=== PATIENT | male | born 1980 | race Caucasian/White ===

== ENCOUNTER 2022-05-22 20:10 | Emergency (ER) | payer OTHER, SELFPAY ==
--- NOTE | ~2022-05-22 | XR_ITS ---
EXAMINATION: XR CHEST CLINICAL INFORMATION: Wheezing. COMPARISON: None TECHNIQUE: 2 views of the chest were obtained. FINDINGS: No significant abnormality is noted involving the heart, lungs, mediastinum, bony thorax or soft tissues. XR/XR chest 2V IMPRESSION: Unremarkable examination.
[2022-05-22 20:19] VITALS: BP 135/84; PULSE 122; RESP 22; TEMP 36.5; O2SAT 95; BMI 39.0
--- NOTE | 2022-05-22 20:19 | ED_ITS ---
HPI - URI/Sore Throat General Chief Complaint: Dyspnea <Danyelle Moreno NP - Last Filed: 05/22/22 20:27> Stated Complaint: SOB <Daynelle Moreno NP - Last Filed: 05/22/22 20:27> Time Seen by Provider: 05/22/22 20:28 <Danyelle Moreno NP - Last Filed: 05/22/22 20:27> Source: patient <Kassidy Mario MD - Last Filed: 05/23/22 00:42> Mode of arrival: ambulatory <Kassidy Mario MD - Last Filed: 05/23/22 00:42> Limitations: no limitations <Kassidy Mario MD - Last Filed: 05/23/22 00:42> History of Present Illness HPI Narrative: Patient comes to the emergency room complaining of shortness of breath. Patient states that couple of weeks ago he had a URI, home COVID test was negative. Patient states that he was wheezing quite a bit but did not think much of it. Patient has no history of asthma or COPD, no cigarette smoking other than occasional marijuana. Patient states that this morning he started feeling short of breath, patient was hoping that he would feel better throughout the day but his shortness of breath and wheezing got worse. Patient denies any chest pain, no fever chills, feels that his abdomen is distended. <Kassidy Mario MD - Last Filed: 05/23/22 00:42> Related Data Home Medications: Previous Rx's Medication Instructions Recorded albuterol sulfate 90 mcg/actuation 2 puff inhalation Q4-6H PRN 05/23/22 aerosol inhaler shortness of breath or wheezing #8.5 grams prednisone 50 mg tablet 50 mg PO DAILY #4 tabs 05/23/22 <Danyelle Moreno NP - Last Filed: 05/22/22 20:27> Allergies/Adverse Reactions: Allergies Allergy/AdvReac Type Severity Reaction Status Date / Time No Known Allergies Allergy Verified 05/22/22 20:22 <Danyelle Moreno NP - Last Filed: 05/22/22 20:27> Review of Systems Review of Systems: Constitutional : No Weight loss, No Fever, No Chills, No Night Sweats, No Fatigue, No Malaise ENT/Mouth : No Hearing loss, No Ear Pain, No Nasal Congestion, No Sinus Pain, No Hoarseness, No sore throat, No Rhinorrhea, No Swallowing Difficulty Eyes: No Eye Pain, No Swelling, No Redness, No Foreign Body, No Discharge, No Vision Changes Cardiovascular : No Chest Pain, no orthopnea, no edema or palpitations Respiratory : Complaining of mild cough, complaining of wheezing and shortness of breath Gastrointestinal : No Nausea, No Vomiting, No Diarrhea, No Constipation, No abdominal Pain, No Hematochezia, No Melena Genitourinary : no irregular bleeding, No Dysuria, No Urinary Frequency, No Hematuria, No Urinary Incontinence, No Urgency, No Flank Pain, No Urinary Flow Changes, No Hesitancy Musculoskeletal : No joint pain, No Myalgias, No Joint Swelling Skin : No Skin Lesions, No rash Neuro : No Weakness, No Numbness, No Paresthesias, No Loss of Consciousness, No Dizziness, No Headache Psych : No Anxiety/Panic, No Depression, No SI/HI/AH/VH, No Social Issues, Heme/Lymph: No Bruising, No Bleeding,No Lymphadenopathy Endocrine : No Polyuria, No Polydipsia, No Temperature Intolerance <Kassidy Mario MD - Last Filed: 05/23/22 00:42> [facility] Social History Social History: Social History Advance Directives: No Advance Directives Information Provided: No <Danyelle Moreno NP - Last Filed: 05/22/22 20:27> Physical Exam Vital Signs: Vital Signs: Last Vital Signs Temp 97.7 F 05/22/22 20:19 Pulse 106 H 05/22/22 20:40 Resp 24 H 05/22/22 20:40 BP 135/84 05/22/22 20:19 Pulse Ox 95 05/22/22 20:19 O2 Del Method 05/22/22 20:19 BMI result Body Mass Index 39.0 <Danyelle Moreno NP - Last Filed: 05/22/22 20:27> Vital Signs: Last Vital Signs Temp 97.7 F 05/22/22 20:19 Pulse 106 H 05/22/22 20:40 Resp 24 H 05/22/22 20:40 BP 135/84 05/22/22 20:19 Pulse Ox 95 05/22/22 20:19 O2 Del Method 05/22/22 20:19 BMI result Body Mass Index 39.0 <Kassidy Mario MD - Last Filed: 05/23/22 00:42> Const: Other: Appearance: Alert. Oriented X3. No acute distress. Eyes: Pupils equal, round and reactive to light. ENT: Pharynx normal. Neck: Normal inspection. Neck supple. No lymph nodes noted. No crepitus CVS: Tachycardic with regular rhythm. Pulses normal. Normal S1 and S2 Respiratory: No respiratory distress. Tachypneic, respiratory rate 22, oxygen saturation 95% on room air, bilateral wheezing, no crackles or rales Abdomen: Soft and nontender. No rigidity. No distention. Skin: Skin warm and dry. Normal skin color. Normal skin turgor. Extremities: No lower extremity edema. No Lacerations. No Rash Neuro: Oriented X 3. No motor deficit. No sensory deficit. Moving all extremities. No slurred speech. CN 2 through 12 grossly intact Psych: calm, cooperative, normal affect <Kassidy Mario MD - Last Filed: 05/23/22 00:42> Course Course Course Narrative: This is rapid medical exam. Deferred additional HPI, ROS, PE to primary provider. 42 yo male healthy here with upper abdominal pressure began this morning. Patient reports recent URI with symptoms that resolved but now feeling SOb/wheezing. No nausea/vomiting/diarrhea/fevers/chills. Patient with inspiratory expiratory wheezing throughout, tachypnea, tachycardia and triage. Pain with breathing and feels like he cant take a deep breath. Patient to have labs, EKG, CXR, viral testing. Duoneb, magnesium, Solu-Medrol ordered. Patient to be direct bedded <Danyelle Moreno NP - Last Filed: 05/22/22 20:27> This is rapid medical exam. Deferred additional HPI, ROS, PE to primary provider. 42 yo male healthy here with upper abdominal pressure began this morning. Patient reports recent URI with symptoms that resolved but now feeling SOb/wheezing. No nausea/vomiting/diarrhea/fevers/chills. Patient with inspiratory expiratory wheezing throughout, tachypnea, tachycardia and triage. Pain with breathing and feels like he cant take a deep breath. Patient to have labs, EKG, CXR, viral testing. Duoneb, magnesium, Solu-Medrol ordered. Patient to be direct bedded Patient no longer has abdominal pain No longer wheezing, patient breathing comfortably. Patient walked around the emergency room, oxygen saturation 94% on room air Discussed with patient to follow-up with PCP, he may need a referral to pulmonology for pulmonary studies, patient may have developed asthma. Unlikely to be COPD <Kassidy Mario MD - Last Filed: 05/23/22 00:42> Medications Administered Discontinued Medications Generic Name Dose Route Start Last Admin Trade Name Freq PRN Reason Stop Dose Admin Albuterol Sulfate 2.5 mg/ 0 mg 05/22/22 20:22 05/22/22 20:37 Ipratropium Trinity 0.5 mg INHALE 05/22/22 20:23 1 each ONCE ONE Administration Magnesium Sulfate 2 gm in 50 mls @ 25 mls/hr 05/22/22 20:26 05/23/22 00:09 Magnesium Sulfate/H2o IV 05/22/22 22:25 Infused ONCE ONE Infusion Methylprednisolone Sodium Succinate 125 mg 05/22/22 20:26 05/22/22 21:37 Methylprednisolone Sod Succ 125 Mg/2 Ml Vial IVPUSH 05/22/22 20:27 125 mg ONCE ONE Administration <Danyelle Moreno NP - Last Filed: 05/22/22 20:27> Medications Administered Discontinued Medications Generic Name Dose Route Start Last Admin Trade Name Freq PRN Reason Stop Dose Admin Albuterol Sulfate 2.5 mg/ 0 mg 05/22/22 20:22 05/22/22 20:37 Ipratropium Trinity 0.5 mg INHALE 05/22/22 20:23 1 each ONCE ONE Administration Magnesium Sulfate 2 gm in 50 mls @ 25 mls/hr 05/22/22 20:26 05/23/22 00:09 Magnesium Sulfate/H2o IV 05/22/22 22:25 Infused ONCE ONE Infusion Methylprednisolone Sodium Succinate 125 mg 05/22/22 20:26 05/22/22 21:37 Methylprednisolone Sod Succ 125 Mg/2 Ml Vial IVPUSH 05/22/22 20:27 125 mg ONCE ONE Administration <Kassidy Mario MD - Last Filed: 05/23/22 00:42> Medical Decision Making Medical Decision Making MDM Narrative: D-dimer negative, EKG within normal limits, troponin negative, chest x-ray negative Patient likely developing asthma. <Kassidy Mario MD - Last Filed: 05/23/22 00:42> Differential Diagnosis Differential Diagnoses: The differential diagnosis associated with the presentation includes (Viral syndrome, asthma, COPD) <Kassidy Mario MD - Last Filed: 05/23/22 00:42> Lab Data MDM Lab Attestation statement: I reviewed the patient's lab results. <Kassidy Mario MD - Last Filed: 05/23/22 00:42> Result Diagrams: 05/22/22 21:00 05/22/22 21:00 <Danyelle Moreno NP - Last Filed: 05/22/22 20:27> Labs: Lab Results 05/22/22 05/22/22 05/22/22 Range/Units 21:00 21:00 21:00 WBC 7.9 (4.8-10.8) X10*3/uL RBC 5.83 H (4.60-5.80) X10*6/uL Hgb 17.9 (14.0-18.0) g/dl Hct 51.1 (42.0-52.0) % MCV 87.7 (80.0-98.0) fL MCH 30.7 (27.0-33.0) pg MCHC 35.0 (31.0-36.0) g/dl RDW 11.9 (11.0-16.0) % Plt Count TNP MPV 11.2 (9.4-12.4) fL Immature Gran % (Auto) 0.3 (0.0-0.4) % Neut % (Auto) 60.3 (45-73) % Lymph % (Auto) 30.8 (20-40) % [place] % (Auto) 4.7 (2-11) % Eos % (Auto) 3.3 (0-4) % Baso % (Auto) 0.6 (0-2) % Lymph # (Auto) 2.4 (1.2-4.9) X10*3/uL [place] # (Auto) 0.4 (0.1-1.2) X10*3/uL Eos # (Auto) 0.3 (0.0-0.4) X10*3/uL Baso # (Auto) 0.1 (0.0-0.2) X10*3/uL Abs Immat Gran (auto) 0.02 (0.00-0.03) X10*3/uL Absolute Neuts (auto) 4.7 (2.0-8.3) x10*3/uL Absolute Nucleated RBC 0.000 (0.0-0.012) X10*3/uL Nucleated RBC % (auto) 0.0 (0.0-0.2) /100WBC Smear Tech's Comments VERIFIED PT 12.2 (10.0-13.1) SEC INR 1.1 (0.9-1.1) D-Dimer High Sensitivty NG/ML Sodium 139 (135-145) mmol/L Potassium 3.9 (3.3-5.1) mmol/L Chloride 102 (96-108) mmol/L Carbon Dioxide 26 (22-29) mmol/L Anion Gap 15 (12-20) BUN 14 (9-16) mg/dL Creatinine 0.77 (0.5-1.4) mg/dL Estim Creat Clear Calc 171.3 Estimated GFR > 60 Random Glucose 99 (60-115) mg/dL Lactic Acid (0.5-2.0) mmol/L Lactic Acid F/U @ 2Hr (0.5-2.0) mmol/L Calcium 9.6 (8.4-10.2) mg/dL Magnesium 1.8 (1.6-2.6) mg/dL Total Bilirubin 0.8 (0.0-1.0) mg/dL Direct Bilirubin 0.3 (0.0-0.5) mg/dL AST 28 (5-37) U/L ALT 47 H (0-40) U/L Alkaline Phosphatase 79 (39-117) U/L Troponin I High Sens (<3.5-35.0) ng/L Total Protein 7.7 (6.5-8.0) g/dL Albumin 4.6 (3.5-5.0) g/dL Lipase 25 (8-78) U/L Influenza Type A (PCR) (Negative) Influenza Type B (PCR) (Negative) RSV RNA Qual (PCR) (Negative) SARS-CoV-2 RNA (RT-PCR) (Negative) 01/13/23 01/13/23 01/13/23 Range/Units 21:00 21:00 21:00 WBC (4.8-10.8) X10*3/uL RBC (4.60-5.80) X10*6/uL Hgb (14.0-18.0) g/dl Hct (42.0-52.0) % MCV (80.0-98.0) fL MCH (27.0-33.0) pg MCHC (31.0-36.0) g/dl RDW (11.0-16.0) % Plt Count MPV (9.4-12.4) fL Immature Gran % (Auto) (0.0-0.4) % Neut % (Auto) (45-73) % Lymph % (Auto) (20-40) % [place] % (Auto) (2-11) % Eos % (Auto) (0-4) % Baso % (Auto) (0-2) % Lymph # (Auto) (1.2-4.9) X10*3/uL [place] # (Auto) (0.1-1.2) X10*3/uL Eos # (Auto) (0.0-0.4) X10*3/uL Baso # (Auto) (0.0-0.2) X10*3/uL Abs Immat Gran (auto) (0.00-0.03) X10*3/uL Absolute Neuts (auto) (2.0-8.3) x10*3/uL Absolute Nucleated RBC (0.0-0.012) X10*3/uL Nucleated RBC % (auto) (0.0-0.2) /100WBC Smear Tech's Comments PT (10.0-13.1) SEC INR (0.9-1.1) D-Dimer High Sensitivty NG/ML Sodium (135-145) mmol/L Potassium (3.3-5.1) mmol/L Chloride (96-108) mmol/L Carbon Dioxide (22-29) mmol/L Anion Gap (12-20) BUN (9-16) mg/dL Creatinine (0.5-1.4) mg/dL Estim Creat Clear Calc Estimated GFR Random Glucose (60-115) mg/dL Lactic Acid 2.2 H* (0.5-2.0) mmol/L Lactic Acid F/U @ 2Hr (0.5-2.0) mmol/L Calcium (8.4-10.2) mg/dL Magnesium (1.6-2.6) mg/dL Total Bilirubin (0.0-1.0) mg/dL Direct Bilirubin (0.0-0.5) mg/dL AST (5-37) U/L ALT (0-40) U/L Alkaline Phosphatase (39-117) U/L Troponin I High Sens < 3.5 (<3.5-35.0) ng/L Total Protein (6.5-8.0) g/dL Albumin (3.5-5.0) g/dL Lipase (8-78) U/L Influenza Type A (PCR) NEGATIVE (Negative) Influenza Type B (PCR) NEGATIVE (Negative) RSV RNA Qual (PCR) NEGATIVE (Negative) SARS-CoV-2 RNA (RT-PCR) NEGATIVE (Negative) 05/22/22 05/22/22 Range/Units 21:00 23:44 WBC (4.8-10.8) X10*3/uL RBC (4.60-5.80) X10*6/uL Hgb (14.0-18.0) g/dl Hct (42.0-52.0) % MCV (80.0-98.0) fL MCH (27.0-33.0) pg MCHC (31.0-36.0) g/dl RDW (11.0-16.0) % Plt Count MPV (9.4-12.4) fL Immature Gran % (Auto) (0.0-0.4) % Neut % (Auto) (45-73) % Lymph % (Auto) (20-40) % [place] % (Auto) (2-11) % Eos % (Auto) (0-4) % Baso % (Auto) (0-2) % Lymph # (Auto) (1.2-4.9) X10*3/uL [place] # (Auto) (0.1-1.2) X10*3/uL Eos # (Auto) (0.0-0.4) X10*3/uL Baso # (Auto) (0.0-0.2) X10*3/uL Abs Immat Gran (auto) (0.00-0.03) X10*3/uL Absolute Neuts (auto) (2.0-8.3) x10*3/uL Absolute Nucleated RBC (0.0-0.012) X10*3/uL Nucleated RBC % (auto) (0.0-0.2) /100WBC Smear Tech's Comments PT (10.0-13.1) SEC INR (0.9-1.1) D-Dimer High Sensitivty < 150 NG/ML Sodium (135-145) mmol/L Potassium (3.3-5.1) mmol/L Chloride (96-108) mmol/L Carbon Dioxide (22-29) mmol/L Anion Gap (12-20) BUN (9-16) mg/dL Creatinine (0.5-1.4) mg/dL Estim Creat Clear Calc Estimated GFR Random Glucose (60-115) mg/dL Lactic Acid (0.5-2.0) mmol/L Lactic Acid F/U @ 2Hr 1.1 (0.5-2.0) mmol/L Calcium (8.4-10.2) mg/dL Magnesium (1.6-2.6) mg/dL Total Bilirubin (0.0-1.0) mg/dL Direct Bilirubin (0.0-0.5) mg/dL AST (5-37) U/L ALT (0-40) U/L Alkaline Phosphatase (39-117) U/L Troponin I High Sens (<3.5-35.0) ng/L Total Protein (6.5-8.0) g/dL Albumin (3.5-5.0) g/dL Lipase (8-78) U/L Influenza Type A (PCR) (Negative) Influenza Type B (PCR) (Negative) RSV RNA Qual (PCR) (Negative) SARS-CoV-2 RNA (RT-PCR) (Negative) <Danyelle Moreno NP - Last Filed: 05/22/22 20:27> Lab Results 05/22/22 05/22/22 05/22/22 Range/Units 21:00 21:00 21:00 WBC 7.9 (4.8-10.8) X10*3/uL RBC 5.83 H (4.60-5.80) X10*6/uL Hgb 17.9 (14.0-18.0) g/dl Hct 51.1 (42.0-52.0) % MCV 87.7 (80.0-98.0) fL MCH 30.7 (27.0-33.0) pg MCHC 35.0 (31.0-36.0) g/dl RDW 11.9 (11.0-16.0) % Plt Count TNP MPV 11.2 (9.4-12.4) fL Immature Gran % (Auto) 0.3 (0.0-0.4) % Neut % (Auto) 60.3 (45-73) % Lymph % (Auto) 30.8 (20-40) % [place] % (Auto) 4.7 (2-11) % Eos % (Auto) 3.3 (0-4) % Baso % (Auto) 0.6 (0-2) % Lymph # (Auto) 2.4 (1.2-4.9) X10*3/uL [place] # (Auto) 0.4 (0.1-1.2) X10*3/uL Eos # (Auto) 0.3 (0.0-0.4) X10*3/uL Baso # (Auto) 0.1 (0.0-0.2) X10*3/uL Abs Immat Gran (auto) 0.02 (0.00-0.03) X10*3/uL Absolute Neuts (auto) 4.7 (2.0-8.3) x10*3/uL Absolute Nucleated RBC 0.000 (0.0-0.012) X10*3/uL Nucleated RBC % (auto) 0.0 (0.0-0.2) /100WBC Smear Tech's Comments VERIFIED PT 12.2 (10.0-13.1) SEC INR 1.1 (0.9-1.1) D-Dimer High Sensitivty NG/ML Sodium 139 (135-145) mmol/L Potassium 3.9 (3.3-5.1) mmol/L Chloride 102 (96-108) mmol/L Carbon Dioxide 26 (22-29) mmol/L Anion Gap 15 (12-20) BUN 14 (9-16) mg/dL Creatinine 0.77 (0.5-1.4) mg/dL Estim Creat Clear Calc 171.3 Estimated GFR > 60 Random Glucose 99 (60-115) mg/dL Lactic Acid (0.5-2.0) mmol/L Lactic Acid F/U @ 2Hr (0.5-2.0) mmol/L Calcium 9.6 (8.4-10.2) mg/dL Magnesium 1.8 (1.6-2.6) mg/dL Total Bilirubin 0.8 (0.0-1.0) mg/dL Direct Bilirubin 0.3 (0.0-0.5) mg/dL AST 28 (5-37) U/L ALT 47 H (0-40) U/L Alkaline Phosphatase 79 (39-117) U/L Troponin I High Sens (<3.5-35.0) ng/L Total Protein 7.7 (6.5-8.0) g/dL Albumin 4.6 (3.5-5.0) g/dL Lipase 25 (8-78) U/L Influenza Type A (PCR) (Negative) Influenza Type B (PCR) (Negative) RSV RNA Qual (PCR) (Negative) SARS-CoV-2 RNA (RT-PCR) (Negative) 05/22/22 05/22/22 05/22/22 Range/Units 21:00 21:00 21:00 WBC (4.8-10.8) X10*3/uL RBC (4.60-5.80) X10*6/uL Hgb (14.0-18.0) g/dl Hct (42.0-52.0) % MCV (80.0-98.0) fL MCH (27.0-33.0) pg MCHC (31.0-36.0) g/dl RDW (11.0-16.0) % Plt Count MPV (9.4-12.4) fL Immature Gran % (Auto) (0.0-0.4) % Neut % (Auto) (45-73) % Lymph % (Auto) (20-40) % [place] % (Auto) (2-11) % Eos % (Auto) (0-4) % Baso % (Auto) (0-2) % Lymph # (Auto) (1.2-4.9) X10*3/uL [place] # (Auto) (0.1-1.2) X10*3/uL Eos # (Auto) (0.0-0.4) X10*3/uL Baso # (Auto) (0.0-0.2) X10*3/uL Abs Immat Gran (auto) (0.00-0.03) X10*3/uL Absolute Neuts (auto) (2.0-8.3) x10*3/uL Absolute Nucleated RBC (0.0-0.012) X10*3/uL Nucleated RBC % (auto) (0.0-0.2) /100WBC Smear Tech's Comments PT (10.0-13.1) SEC INR (0.9-1.1) D-Dimer High Sensitivty NG/ML Sodium (135-145) mmol/L Potassium (3.3-5.1) mmol/L Chloride (96-108) mmol/L Carbon Dioxide (22-29) mmol/L Anion Gap (12-20) BUN (9-16) mg/dL Creatinine (0.5-1.4) mg/dL Estim Creat Clear Calc Estimated GFR Random Glucose (60-115) mg/dL Lactic Acid 2.2 H* (0.5-2.0) mmol/L Lactic Acid F/U @ 2Hr (0.5-2.0) mmol/L Calcium (8.4-10.2) mg/dL Magnesium (1.6-2.6) mg/dL Total Bilirubin (0.0-1.0) mg/dL Direct Bilirubin (0.0-0.5) mg/dL AST (5-37) U/L ALT (0-40) U/L Alkaline Phosphatase (39-117) U/L Troponin I High Sens < 3.5 (<3.5-35.0) ng/L Total Protein (6.5-8.0) g/dL Albumin (3.5-5.0) g/dL Lipase (8-78) U/L Influenza Type A (PCR) NEGATIVE (Negative) Influenza Type B (PCR) NEGATIVE (Negative) RSV RNA Qual (PCR) NEGATIVE (Negative) SARS-CoV-2 RNA (RT-PCR) NEGATIVE (Negative) 05/22/22 05/22/22 Range/Units 21:00 23:44 WBC (4.8-10.8) X10*3/uL RBC (4.60-5.80) X10*6/uL Hgb (14.0-18.0) g/dl Hct (42.0-52.0) % MCV (80.0-98.0) fL MCH (27.0-33.0) pg MCHC (31.0-36.0) g/dl RDW (11.0-16.0) % Plt Count MPV (9.4-12.4) fL Immature Gran % (Auto) (0.0-0.4) % Neut % (Auto) (45-73) % Lymph % (Auto) (20-40) % [place] % (Auto) (2-11) % Eos % (Auto) (0-4) % Baso % (Auto) (0-2) % Lymph # (Auto) (1.2-4.9) X10*3/uL [place] # (Auto) (0.1-1.2) X10*3/uL Eos # (Auto) (0.0-0.4) X10*3/uL Baso # (Auto) (0.0-0.2) X10*3/uL Abs Immat Gran (auto) (0.00-0.03) X10*3/uL Absolute Neuts (auto) (2.0-8.3) x10*3/uL Absolute Nucleated RBC (0.0-0.012) X10*3/uL Nucleated RBC % (auto) (0.0-0.2) /100WBC Smear Tech's Comments PT (10.0-13.1) SEC INR (0.9-1.1) D-Dimer High Sensitivty < 150 NG/ML Sodium (135-145) mmol/L Potassium (3.3-5.1) mmol/L Chloride (96-108) mmol/L Carbon Dioxide (22-29) mmol/L Anion Gap (12-20) BUN (9-16) mg/dL Creatinine (0.5-1.4) mg/dL Estim Creat Clear Calc Estimated GFR Random Glucose (60-115) mg/dL Lactic Acid (0.5-2.0) mmol/L Lactic Acid F/U @ 2Hr 1.1 (0.5-2.0) mmol/L Calcium (8.4-10.2) mg/dL Magnesium (1.6-2.6) mg/dL Total Bilirubin (0.0-1.0) mg/dL Direct Bilirubin (0.0-0.5) mg/dL AST (5-37) U/L ALT (0-40) U/L Alkaline Phosphatase (39-117) U/L Troponin I High Sens (<3.5-35.0) ng/L Total Protein (6.5-8.0) g/dL Albumin (3.5-5.0) g/dL Lipase (8-78) U/L Influenza Type A (PCR) (Negative) Influenza Type B (PCR) (Negative) RSV RNA Qual (PCR) (Negative) SARS-CoV-2 RNA (RT-PCR) (Negative) <Kassidy Mario MD - Last Filed: 05/23/22 00:42> Independent Interpretation I performed an independent interpretation of an: EKG (My interpretation: Normal sinus rhythm, heart rate 98, no ST segment depression or elevation, no T-wave inversion, QTC 446, low voltage EKG) and Pl ain X-Ray (My interpretation of chest x-ray: No infiltrate) <Kassidy Mario MD - Last Filed: 05/23/22 00:42> Radiology Impression Discussion of test interpretation with radiology: I have reviewed the radiologist's reading. <Kassidy Mario MD - Last Filed: 05/23/22 00:42> Radiologist Impression: FINDINGS: No significant abnormality is noted involving the heart, lungs, mediastinum, bony thorax or soft tissues. XR/XR chest 2V IMPRESSION: Unremarkable examination. <Kassidy Mario MD - Last Filed: 05/23/22 00:42> Discharge Plan Discharge Clinical Impression: Bilateral wheezing <Danyelle Moreno NP - Last Filed: 05/22/22 20:27> Patient Disposition: Home, Self-Care <Danyelle Moreno NP - Last Filed: 05/22/22 20:27> Instructions: Wheezing (ED) <Danyelle Moreno NP - Last Filed: 05/22/22 20:27> Additional Instructions: Please follow-up with your primary care physician tomorrow. If you have any worsening or new symptoms, please return to the emergency room or call 911 <Danyelle Moreno NP - Last Filed: 05/22/22 20:27> Prescriptions: New prednisone 50 mg tablet 50 mg PO DAILY Qty: 4 0RF albuterol sulfate 90 mcg/actuation HFA aerosol inhaler 2 puff inhalation Q4-6H PRN (Reason: shortness of breath or wheezing) Qty: 8.5 0RF <Danyelle Moreno NP - Last Filed: 05/22/22 20:27>
--- NOTE | 2022-05-22 20:22 | ECG_ITS ---
Test Reason : DYSPNEA Blood Pressure : / mmHG Vent. Rate : 098 BPM Atrial Rate : 098 BPM P-R Int : 170 ms QRS Dur : 078 ms QT Int : 350 ms P-R-T Axes : 064 -17 042 degrees QTc Int : 446 ms Normal sinus rhythm Cannot rule out Anterior infarct , age undetermined Abnormal ECG No previous ECGs available Referred By: Danyelle Moreno Electronically Signed By:Boni Thompson
[2022-05-22 20:40] VITALS: PULSE 106; RESP 24; O2SAT 100
[2022-05-22 21:13] LABS: Basophils Absolute Auto 0.1 X10*3/uL (0.0-0.2); Basophils Percent Auto 0.6 % (0-2); Hemoglobin 17.9 g/dl (14.0-18.0); Mean Platelet Volume 11.2 fL (9.4-12.4); Neutrophils Percent Auto 60.3 % (45-73); PLT CLUMP 1; SCAN SMEAR FLAG 1
[2022-05-22 21:15] LABS: Eosinophils Absolute Auto 0.3 X10*3/uL (0.0-0.4); Eosinophils Percent Auto 3.3 % (0-4); Hematocrit 51.1 % (42.0-52.0); Imm Gran Abs Auto 0.02 X10*3/uL (0.00-0.03); Imm Gran Pct Auto 0.3 % (0.0-0.4); Lymphocytes Absolute Auto 2.4 X10*3/uL (1.2-4.9); Lymphocytes Percent Auto 30.8 % (20-40); MANUAL DIFF FLAG SCAN; Mean Corpuscular Hemoglobin 30.7 pg (27.0-33.0); Mean Corpuscular Volume 87.7 fL (80.0-98.0); Monocytes Absolute Auto 0.4 X10*3/uL (0.1-1.2); Monocytes Percent Auto 4.7 % (2-11); Neutrophils Absolute Auto 4.7 x10*3/uL (2.0-8.3); Red Blood Count 5.83 X10*6/uL (4.60-5.80); Red Cell Distribution Width 11.9 % (11.0-16.0)
[2022-05-22 21:19] LABS: White Blood Count 7.9 X10*3/uL (4.8-10.8)
[2022-05-22 21:22] LABS: INTERNATIONAL NORM RATIO 1.1 (0.9-1.1); Prothrombin Time 12.2 SEC (10.0-13.1)
[2022-05-22 21:28] LABS: Alanine Aminotransferase 47 U/L (0-40); Albumin Level 4.6 g/dL (3.5-5.0); Alkaline Phosphatase 79 U/L (39-117); Anion Gap 15 (12-20); Aspartate Amino Transferase 28 U/L (5-37); Bilirubin Direct 0.3 mg/dL (0.0-0.5); Bilirubin Total 0.8 mg/dL (0.0-1.0); Blood Urea Nitrogen 14 mg/dL (9-16); Calcium 9.6 mg/dL (8.4-10.2); Carbon Dioxide 26 mmol/L (22-29); Chloride 102 mmol/L (96-108); Creatinine Clr Calc Pharmacy 171.3; Estimated Glomerular Filt Rate > 60; Glucose Random 99 mg/dL (60-115); Lipase 25 U/L (8-78); Magnesium 1.8 mg/dL (1.6-2.6); Potassium 3.9 mmol/L (3.3-5.1); Sodium 139 mmol/L (135-145); Total Protein 7.7 g/dL (6.5-8.0)
[2022-05-22 21:29] LABS: Lactic Acid 2.2 mmol/L (0.5-2.0)
[2022-05-22] MEDS: Magnesium Sulfate/H2O 2 GM/50 ML PIGGYBACK IV (21:36)
[2022-05-22] MEDS: methylPREDNISolone Sod Succ 125 MG/2 ML VIAL IVPUSH (21:37)
[2022-05-22 21:38] LABS: SLIDE REVIEW VERIFIED
[2022-05-22 21:58] LABS: Influenza A PCR NEGATIVE (Negative); Influenza B PCR NEGATIVE (Negative); Resp Syncy Virus RNA Qual PCR NEGATIVE (Negative); SARS COV2 PCR INHOUSE NEGATIVE (Negative)
[2022-05-22 22:04] LABS: Troponin-I High Sensitivity < 3.5 ng/L (<3.5-35.0)
[2022-05-22 22:38] LABS: D Dimer High Sensitivity < 150 NG/ML
[2022-05-22 23:07] LABS: Reflex Lactate? Lactic Acid Added
[2022-05-23 00:06] LABS: ~Lactic Acid-LAB USE ONLY 1.1 mmol/L (0.5-2.0)
[2022-05-23 00:46] VITALS: BP 122/89; PULSE 107; RESP 17; TEMP 36.6; O2SAT 96
== END 2022-05-23 01:02 | disposition home or self-care (01) ==
PROVIDERS: Nurse Practitioner Family; Emergency Provider Emergency Medicine
DX: R06.2 Wheezing (principal); R06.02 Shortness of breath; R10.10 Upper abdominal pain, unspecified; Z20.822 Contact with and (suspected) exposure to COVID-19; Z20.828 Contact with and (suspected) exposure to other viral communicable diseases; Z79.899 Other long term (current) drug therapy
CPT/HCPCS: 0241U; 36415; 71046; 80048; 80076; 83605; 83690; 83735; 84484; 85025; 85379; 85610; 87040; 93005; 94640; 96365; 96366; 96375; 99284; 99285; J2930; J3475

== ENCOUNTER 2023-06-23 20:57 | Emergency (ER) | payer OTHER, SELFPAY ==
--- NOTE | ~2023-06-23 | XR_ITS ---
EXAMINATION: XR CHEST CLINICAL INFORMATION: Chest pain COMPARISON: None available. TECHNIQUE: 2 views of the chest were obtained. FINDINGS: The lungs are fairly well-expanded and clear. Heart size and pulmonary vascularity is normal. No gross bony abnormality seen. XR/XR chest 2V IMPRESSION: Unremarkable chest exam.
[2023-06-23 21:00] VITALS: BP 154/99; PULSE 121; RESP 18; TEMP 37.1; O2SAT 94; BMI 40.2
[2023-06-23 21:35] LABS: COVID-19 Test Negative (Negative); IDNOW Serial# 08D9AD1C
[2023-06-23 21:39] LABS: IDNOW Serial# 9DB6401D; Influenza A Negative (Negative); Influenza B2 Negative (Negative)
[2023-06-24 00:22] VITALS: BP 155/87; PULSE 110; RESP 22; TEMP 37.4; O2SAT 93
--- NOTE | 2023-06-24 00:31 | PC.NURSE ---
Addendum entered by Reena Mcadams 06/24/23 00:33: Respiratory called and made aware. Original Note: Pt reports increase SOB with exertion, auditory wheezing while walking up to triage. SpO2 93% on RA. Lung sounds wheezy.
[2023-06-24 00:34] VITALS: BP 159/94; PULSE 116; RESP 22; TEMP 37.8; O2SAT 96
[2023-06-24 00:45] VITALS: PULSE 111; RESP 21; O2SAT 97
[2023-06-24] MEDS: Albuterol Sulfate 5 MG, Albuterol Sulfate (0.083%) 2.5 MG 7.5 MG INHALE (00:45)
--- NOTE | 2023-06-24 00:51 | ED.ASTHMA ---
HPI - Asthma General Chief Complaint: Asthma Stated Complaint: asthma, difficulty breathing Time Seen by Provider: 06/24/23 00:34 Source: patient and RN notes reviewed Mode of arrival: ambulatory Limitations: no limitations History of Present Illness HPI Narrative: This is a 43-year-old male, with a history of asthma, presenting to the emergency department with complaints of asthma exacerbation x3 days. Patient states that over the last week he has felt like he had cold-like symptoms including cough, runny nose, sneezing. He has been using his inhaler at home without any improvement. He denies any fevers, chills, headache, dizziness, chest pain, palpitations, abdominal pain, nausea, vomiting or diarrhea. No recent travel, surgeries, hospitalizations. No history of blood clots. No other complaints or concerns at this time. MD complaint: asthma attack Context: recent URI Associated symptoms: dry cough Asthma History: childhood onset and history of prior ED visit Related Data Previous Rx's Medication Instructions Recorded albuterol sulfate 90 mcg/actuation 2 puff inhalation Q4-6H PRN 05/23/22 aerosol inhaler shortness of breath or wheezing #8.5 grams prednisone 50 mg tablet 50 mg PO DAILY #4 tabs 05/23/22 albuterol sulfate 90 mcg/actuation 2 puff inhalation Q6H PRN 06/24/23 aerosol inhaler shortness of breath or wheezing #6.7 grams azithromycin 250 mg tablet 250 mg PO DAILY 4 days #4 tabs 06/24/23 prednisone 20 mg tablet 40 mg (2 x 20 mg) PO DAILY 4 days 06/24/23 #8 tabs Allergies Allergy/AdvReac Type Severity Reaction Status Date / Time No Known Allergies Allergy Verified 06/23/23 21:00 Review of Systems Review of Systems: Yes all other systems are reviewed and are negative Constitutional: Constitutional: Reports as per [facility] Social History Social History Alcohol intake: current Alcohol intake frequency: holidays/special occasions only Smoked in Last 30 Days: No Use of substances other than those prescribed or required for medical reasons: No Substance Use Type: Marijuana Advance Directives: No Advance Directives Information Provided: No Physical Exam Vital Signs: Vital Signs: Last Vital Signs Temp 99.5 F 06/24/23 03:41 Pulse 106 H 06/24/23 03:41 Resp 20 02/15/24 03:41 BP 114/71 06/24/23 03:41 Pulse Ox 95 06/24/23 03:59 O2 Del Method Room Air 06/24/23 03:59 BMI result Body Mass Index 40.2 Const: General: cooperative, comfortable and no acute distress Orientation/consciousness: patient oriented x3 Limitations: no limitations HEENT: Head: Yes normal to inspection, Yes normocephalic and Yes atraumatic Ears: hearing grossly normal bilaterally General nose exam: Normal external nose present Face and sinus: Yes normal facial exam Mouth: Normal oral and palatal mucosa present, oropharynx normal and moist mucous membranes Throat: Yes posterior oropharynx normal Eyes: General: appearance normal, both eyes and all related structures Eyelids: Yes eyelids normal Conjunctivae: conjunctivae normal Sclerae: sclerae normal Pupils: Equal, round and reactive pupils present EOM: EOMs intact bilaterally Neck: Neck: Yes normal visual inspection, Yes full ROM and Yes no lymphadenopathy Lymphatic: no lymphadenopathy noted Chest: Chest palpation & inspection: normal inspection of the chest Resp: Other: Tight, inspiratory and expiratory wheezes throughout all lung moore, speaking in 2-3 word sentences secondary to labored breathing Cardio: Rate: regular rate Rhythm: regular rhythm Heart sounds: S1 normal heart sound present and S2 normal heart sound present GI: Inspection: Yes normal to inspection Skin: General skin exam: no rashes or lesions noted Trauma: no lacerations or abrasions Wounds: no wounds Neuro: General: patient oriented x3 and moves all extremities Cranial nerves: Yes Equal, round and reactive pupils present Extrem: General: Yes normal to inspection Right upper extremity: normal to inspection Left upper extremity: normal to inspection Right lower extremity: normal to inspection Left lower extremity: normal to inspection Course Reevaluation(s) Reevaluation #1: Patient re-evaluated after receiving updraft, and it has been approximately 45 minutes since receiving IV steroids and magnesium. Patient has yet to receive IV fluids. Asked nurse to place patient on IV fluid bag. Time: 02:03 Reevaluation #2: Patient IV fluids, tachycardic at 119 beats per minute, better air movement throughout all lung moore however inspiratory and expiratory wheezes noted. Discussed this with patient, may have to administer 2nd updraft. I discussed this with my attending, Dr. Booth. Sign-out given to him pending re-evaluation after receiving IV fluids. Time: 02:19 Reevaluation #3: I re-examined the patient. He still has some mild wheezes. His oxygenation on room air is over 90%. He feels considerably better. I think he is safe for discharge. He will be prescribed prednisone and azithromycin at discharge. He has an albuterol inhaler. We will instruct him in the use of an AeroChamber. He does not have a primary care doctor. He is strongly encouraged to get a primary care doctor and also possibly follow up with the [place] [facility]. If he is worse at any point he needs to return to the emergency room immediately Time: 04:06 Medications Administered Discontinued Medications Generic Name Dose Route Start Last Admin Trade Name Freq PRN Reason Stop Dose Admin Albuterol Sulfate 5 mg/ 7.5 mg 06/24/23 00:35 06/24/23 00:45 Albuterol Sulfate 2.5 mg INHALE 06/24/23 00:36 7.5 mg ONCE ONE Administration Magnesium Sulfate 2 gm in 50 mls @ 25 mls/hr 06/24/23 00:47 06/24/23 01:30 Magnesium Sulfate/H2o IV 06/24/23 02:46 25 mls/hr ONCE ONE Administration Sodium Chloride 1,000 mls @ 999 mls/hr 06/24/23 00:48 06/24/23 02:05 Ns IV 06/24/23 01:48 999 mls/hr .Q1H1M ONE Administration Methylprednisolone Sodium Succinate 125 mg 06/24/23 00:48 06/24/23 01:27 Methylprednisolone Sod Succ 125 Mg/2 Ml Vial IVPUSH 06/24/23 00:49 125 mg ONCE ONE Administration Medical Decision Making Medical Decision Making [facility] Narrative: This is a 43-year-old male, with a history of asthma, presenting to the emergency department for evaluation of shortness breath, wheezing over the last several days. On arrival, 94% on room air, pulse 121, blood pressure 154/99 likely due to albuterol use. Repeat revealing pulse of 1011, respirations 21, he is afebrile. Chest x-ray was obtained, no focal consolidation seen. Patient tested negative for COVID and flu. Lungs with tight inspiratory and expiratory wheeze throughout all lung moore. Will give albuterol updraft, as well as IV Solu-Medrol, IV Mag and re-evaluate. He has never been intubated, no hospitalizations for asthma exacerbations in the past. He is a nonsmoker Differential Diagnosis Differential Diagnoses: The differential diagnosis associated with the presentation includes Asthma exacerbation, URI, pneumonia, bronchitis Admission/Observation Consideration of admission/observation: Escalation of care including admission/observation considered Lab Data MDM Lab Attestation statement: I reviewed the patient's lab results. Negative COVID, flu Labs: Lab Results 06/23/23 Range/Units 21:12 COVID-19 ([facility]IK) Negative (Negative) COVID-19 Clin Com See Note Influenza Type A ([facility]) Negative (Negative) Influenza Type B ([facility]) Negative (Negative) Influenza A & B Note See Note Radiology Impression Discussion of test interpretation with radiology: I have reviewed the radiologist's reading. Radiologist Impression: EXAMINATION: XR CHEST CLINICAL INFORMATION: Chest pain COMPARISON: None available. TECHNIQUE: 2 views of the chest were obtained. FINDINGS: The lungs are fairly well-expanded and clear. Heart size and pulmonary vascularity is normal. No gross bony abnormality seen. XR/XR chest 2V IMPRESSION: Unremarkable chest exam. Dictated By: Paul Talavera MD Discharge Plan Discharge Clinical Impression: Asthma with acute exacerbation Patient Disposition: Still a Patient Instructions: Asthma (ED), How to Use a Metered-Dose Inhaler and a Spacer (ED) Additional Instructions: You were seen in the emergency department due to an asthma exacerbation You were given IV steroids, IV magnesium, as well as an updraft. You tested negative for COVID and flu. Your chest x-ray did not show a pneumonia. Take prescribed prednisone as directed. Use inhaler with spacer as needed for shortness of breath. Take azithromycin once a day. Drink plenty of fluids and get plenty of rest. Please work on getting a primary care doctor. You have been given the contact number for the [facility] pulmonary service. You may try contacting them for follow-up but they may require you get a primary care doctor. If any new or worsening symptoms occur including but not limited to chest pain, shortness of breath, please return for re-evaluation Prescriptions: New prednisone 20 mg tablet 40 mg PO DAILY 4 Days Qty: 8 0RF albuterol sulfate 90 mcg/actuation HFA aerosol inhaler 2 puff inhalation Q6H PRN (Reason: shortness of breath or wheezing) Qty: 6.7 0RF azithromycin 250 mg tablet 250 mg PO DAILY 4 Days Qty: 4 0RF Rx Instructions: start on day 2 of therapy No Action prednisone 50 mg tablet 50 mg PO DAILY Qty: 4 0RF albuterol sulfate 90 mcg/actuation HFA aerosol inhaler 2 puff inhalation Q4-6H PRN (Reason: shortness of breath or wheezing) Qty: 8.5 0RF Referrals: [facility] [Provider Group]
[2023-06-24 01:25] VITALS: BP 150/93; PULSE 116; RESP 20; TEMP 37.6; O2SAT 96
[2023-06-24] MEDS: methylPREDNISolone Sod Succ 125 MG/2 ML VIAL IVPUSH (01:27)
[2023-06-24] MEDS: Magnesium Sulfate/H2O 2 GM/50 ML PIGGYBACK IV (01:30)
[2023-06-24] MEDS: 0.9 % Sodium Chloride 1,000 ML 999 ML IV (02:05)
[2023-06-24 03:41] VITALS: BP 114/71; PULSE 106; RESP 20; TEMP 37.5; O2SAT 93
--- NOTE | 2023-06-24 03:43 | MHC.EDTECH ---
Hourly rounds and vitals completed,patient is resting comfortably at this time,call chavez in reach
[2023-06-24 03:59] VITALS: O2SAT 95
--- NOTE | 2023-06-24 03:59 | MHC.EDTECH ---
Ambulated patient and got a walking O2 sats of 95%,Doctor at bedside and is aware
[2023-06-24] MEDS: Azithromycin 500 MG TABLET PO (04:20)
== END 2023-06-24 04:24 | disposition home or self-care (01) ==
PROVIDERS: Emergency Provider Emergency Medicine
DX: J45.901 Unspecified asthma with (acute) exacerbation (principal); R00.0 Tachycardia, unspecified; Z11.52 Encounter for screening for COVID-19
CPT/HCPCS: 71046; 87502; 87635; 94640; 96361; 96365; 96366; 96375; 99285; J2930; J3475

== ENCOUNTER 2024-04-23 22:35 | Emergency (ER) | payer OTHER, SELFPAY ==
--- NOTE | ~2024-04-23 | XR_ITS ---
EXAMINATION: XR CHEST CLINICAL INFORMATION: dyspnea COMPARISON: Prior chest 06/23/2023 TECHNIQUE: Frontal view of the chest was obtained. FINDINGS: No significant abnormality is noted involving the heart, lungs, mediastinum, bony thorax or soft tissues. XR/XR chest 1V IMPRESSION: Unremarkable examination. Electronically signed by: Sourav Sloan MD 04/23/2024 11:07 PM [facility]
[2024-04-23 22:37] VITALS: BP 132/93; PULSE 112; RESP 22; TEMP 37; O2SAT 95; BMI 35.9
[2024-04-23 23:30] LABS: Influenza A PCR NEGATIVE (Negative); Influenza B PCR NEGATIVE (Negative); Resp Syncy Virus RNA Qual PCR NEGATIVE (Negative); SARS COV2 PCR INHOUSE NEGATIVE (Negative)
--- NOTE | 2024-04-24 | PC.NURSE ---
Pt change into hospital attire, pt placed on tele bedside monitor, respiratory notified.
--- NOTE | 2024-04-24 00:01 | MHC.EDTECH ---
Patient was placed in the room. Heart monitor and 02 sat placed on patient. Spoke to RN about how patient was feeling.
--- NOTE | 2024-04-24 00:04 | ED_ITS ---
HPI - SOB/Dyspnea General Chief Complaint: Upper Respiratory Symptoms Stated Complaint: asthma, sob Time Seen by Provider: 04/23/24 23:55 Source: patient Mode of arrival: ambulatory Limitations: no limitations History of Present Illness ED Provider: Dr. Kassidy Mario HPI Narrative: Patient comes to the emergency room complaining of an asthma exacerbation. Patient states that he has been wheezing constantly for about 2 days now, only uses an inhaler but this time has not been working. Patient denies any recent viral illnesses. Patient denies chest pain, denies nausea vomiting. Related Data Previous Rx's ?Medication ?Instructions ?Recorded albuterol sulfate 90 mcg/actuation 2 puff inhalation Q4-6H PRN 05/23/22 aerosol inhaler shortness of breath or wheezing #8.5 grams prednisone 50 mg tablet 50 mg PO DAILY #4 tabs 05/23/22 albuterol sulfate 90 mcg/actuation 2 puff inhalation Q6H PRN 06/24/23 aerosol inhaler shortness of breath or wheezing #6.7 grams azithromycin 250 mg tablet 250 mg PO DAILY 4 days #4 tabs 06/24/23 prednisone 20 mg tablet 40 mg (2 x 20 mg) PO DAILY 4 days 06/24/23 #8 tabs prednisone 50 mg tablet 50 mg PO DAILY #4 tabs 04/24/24 Allergies Allergy/AdvReac Type Severity Reaction Status Date / Time No Known Allergies Allergy Verified 04/23/24 22:37 Review of Systems 2 Review of Systems: Appearance: Alert. Oriented X3. No acute distress. Eyes: Pupils equal, round and reactive to light. ENT: Pharynx normal. Neck: Normal inspection. Neck supple. No lymph nodes noted. No crepitus CVS: Normal heart rate and rhythm. Pulses normal. Normal S1 and S2 Respiratory: No respiratory distress. Diffuse bilateral wheezing with decreased air movement Abdomen: Soft and nontender. No rigidity. No distention. Skin: Skin warm and dry. Normal skin color. Normal skin turgor. Extremities: No lower extremity edema. No Lacerations. No Rash Neuro: Oriented X 3. No motor deficit. No sensory deficit. Moving all extremities. No slurred speech. CN 2 through 12 grossly intact Psych: calm, cooperative, normal affect PMFSH Social History Social History Alcohol intake: current Alcohol intake frequency: holidays/special occasions only Smoked in Last 30 Days: No Use of substances other than those prescribed or required for medical reasons: No Substance Use Type: Marijuana Advance Directives: No Advance Directives Information Provided: Yes Physical Exam 2 Vital Signs: Vital Signs: Last Vital Signs Temp 98.7 F 04/24/24 03:05 Pulse 106 H 04/24/24 03:05 Resp 14 04/24/24 03:05 BP 117/77 04/24/24 03:05 Pulse Ox 95 04/24/24 03:05 O2 Del Method Nasal Cannula 04/24/24 03:05 O2 Flow Rate 2 04/24/24 03:05 BMI result Body Mass Index 35.9 Const: Other: Appearance: Alert. Oriented X3. No acute distress. Eyes: Pupils equal, round and reactive to light. ENT: Pharynx normal. Neck: Normal inspection. Neck supple. No lymph nodes noted. No crepitus CVS: Normal heart rate and rhythm. Pulses normal. Normal S1 and S2 Respiratory: Bilateral wheezing, moderate air movement Abdomen: Soft and nontender. No rigidity. No distention. Skin: Skin warm and dry. Normal skin color. Normal skin turgor. Extremities: No lower extremity edema. No Lacerations. No Rash Neuro: Oriented X 3. No motor deficit. No sensory deficit. Moving all extremities. No slurred speech. CN 2 through 12 grossly intact Psych: calm, cooperative, normal affect Course Course Course Narrative: Patient receiving IV Solu-Medrol, magnesium and nebulization treatment has been started. Of patient's labs and imaging pending. Medications Administered Discontinued Medications Generic Name Dose Route Start Last Admin Trade Name Freq PRN Reason Stop Dose Admin Albuterol Sulfate 7.5 mg/ 0 mg 04/24/24 00:06 04/24/24 00:12 Albuterol/Ipratropium 3 ml INHALE 04/24/24 00:07 10 each ONCE ONE Administration Albuterol Sulfate 5 mg/ 0 mg 04/24/24 00:59 04/24/24 01:02 Albuterol/Ipratropium 3 ml INHALE 04/24/24 01:00 7.5 each ONCE ONE Administration Magnesium Sulfate 2 gm in 50 mls @ 25 mls/hr 04/24/24 00:01 04/24/24 03:46 Magnesium Sulfate/H2o IV 04/24/24 02:00 Infused ONCE ONE Infusion Methylprednisolone Sodium Succinate 125 mg 04/24/24 00:01 04/24/24 00:17 Methylprednisolone Sod Succ 125 Mg/2 Ml Vial IVPUSH 04/24/24 00:02 125 mg ONCE ONE Administration Medical Decision Making Medical Decision Making [facility] Narrative: My interpretation of chest x-ray: Not use abnormality. Serology: Negative for influenza RSV and COVID Chest x-ray: No infiltrates After couple of treatments, patient feeling much better, oxygen saturation 96%, patient walked around the emergency room, saturating 92%. Did not feel any shortness of breath, patient states that he feels well and is ready to go home Differential Diagnosis Differential Diagnoses: The differential diagnosis associated with the presentation includes (Asthma exacerbation, pneumonia, viral URI) Admission/Observation Consideration of admission/observation: Escalation of care including admission/observation considered (Given patient's initial presentation, patient was considered) Lab Data [facility] Lab Attestation statement: I reviewed the patient's lab results. 04/24/24 00:10 04/24/24 00:10 Labs: Lab Results 04/23/24 04/24/24 Range/Units 22:47 00:10 WBC 8.5 (4.8-10.8) X10*3/uL RBC 5.72 (4.60-5.80) X10*6/uL Hgb 17.2 (14.0-18.0) g/dl Hct 49.8 (42.0-52.0) % MCV 87.1 (80.0-98.0) fL MCH 30.1 (27.0-33.0) pg MCHC 34.5 (31.0-36.0) g/dl RDW 12.5 (11.0-16.0) % Plt Count 274 (160-400) X10*3/uL MPV 10.3 (9.4-12.4) fL Immature Gran % (Auto) 0.1 (0.0-0.4) % Neut % (Auto) 52.7 (45-73) % Lymph % (Auto) 30.0 (20-40) % [place] % (Auto) 4.8 (2-11) % Eos % (Auto) 11.2 H (0-4) % Baso % (Auto) 1.2 (0-2) % Lymph # (Auto) 2.6 (1.2-4.9) X10*3/uL [place] # (Auto) 0.4 (0.1-1.2) X10*3/uL Eos # (Auto) 1.0 H (0.0-0.4) X10*3/uL Baso # (Auto) 0.1 (0.0-0.2) X10*3/uL Abs Immat Gran (auto) 0.01 (0.00-0.03) X10*3/uL Absolute Neuts (auto) 4.5 (2.0-8.3) x10*3/uL Absolute Nucleated RBC 0.000 (0.0-0.012) X10*3/uL Nucleated RBC % (auto) 0.0 (0.0-0.2) /100WBC Sodium 139 (135-145) mmol/L Potassium 4.6 (3.3-5.1) mmol/L Chloride 105 (96-108) mmol/L Carbon Dioxide 24 (22-29) mmol/L Anion Gap 15 (12-20) BUN 12 (9-16) mg/dL Creatinine 0.77 (0.5-1.4) mg/dL Estim Creat Clear Calc 155.9 Estimated GFR > 60 Random Glucose 103 (60-115) mg/dL Calcium 9.0 D (8.4-10.2) mg/dL Influenza Type A (PCR) NEGATIVE (Negative) Influenza Type B (PCR) NEGATIVE (Negative) RSV RNA Qual (PCR) NEGATIVE (Negative) SARS-CoV-2 RNA (RT-PCR) NEGATIVE (Negative) Independent Interpretation I performed an independent interpretation of an: Plain X-Ray Radiology Impression Discussion of test interpretation with radiology: I have reviewed the radiologist's reading. Radiologist Impression: No significant abnormality is noted involving the heart, lungs, mediastinum, bony thorax or soft tissues. XR/XR chest 1V IMPRESSION: Unremarkable examination. Critical Care Time Critical Care Time Critical Care Time: Yes Total Critical Care Time: 45 Attestation: I have personally provided critical care time. Time includes review of lab data, radiology results, discussion with consultants, and monitoring for potential decompensation. Intervention performed as documented. Discharge Plan Discharge Clinical Impression: Asthma exacerbation Patient Disposition: Home, Self-Care Instructions: Asthma (ED) Additional Instructions: Please follow-up with your primary care physician tomorrow. If you have any worsening or new symptoms, please return to the emergency room or call 911 Prescriptions: New prednisone 50 mg tablet 50 mg PO DAILY Qty: 4 0RF No Action prednisone 50 mg tablet 50 mg PO DAILY Qty: 4 0RF albuterol sulfate 90 mcg/actuation HFA aerosol inhaler 2 puff inhalation Q4-6H PRN (Reason: shortness of breath or wheezing) Qty: 8.5 0RF prednisone 20 mg tablet 40 mg PO DAILY 4 Days Qty: 8 0RF albuterol sulfate 90 mcg/actuation HFA aerosol inhaler 2 puff inhalation Q6H PRN (Reason: shortness of breath or wheezing) Qty: 6.7 0RF azithromycin 250 mg tablet 250 mg PO DAILY 4 Days Qty: 4 0RF Rx Instructions: start on day 2 of therapy Stand Alone Forms: Work/School Release Print Language: Khmer
[2024-04-24 00:12] VITALS: PULSE 95; RESP 16; O2SAT 95
[2024-04-24] MEDS: Albuterol Sulfate 7.5 MG, Albuterol/Iprat 2.5/0.5MG 3 ML 3 ML INHALE (00:12)
[2024-04-24 00:15] LABS: Basophils Absolute Auto 0.1 X10*3/uL (0.0-0.2); Basophils Percent Auto 1.2 % (0-2); Eosinophils Percent Auto 11.2 % (0-4); Hematocrit 49.8 % (42.0-52.0); Hemoglobin 17.2 g/dl (14.0-18.0); Imm Gran Abs Auto 0.01 X10*3/uL (0.00-0.03); Imm Gran Pct Auto 0.1 % (0.0-0.4); Lymphocytes Absolute Auto 2.6 X10*3/uL (1.2-4.9); MANUAL DIFF FLAG NO; Mean Corpuscular HGB Conc 34.5 g/dl (31.0-36.0); Mean Corpuscular Hemoglobin 30.1 pg (27.0-33.0); Mean Corpuscular Volume 87.1 fL (80.0-98.0); Mean Platelet Volume 10.3 fL (9.4-12.4); Monocytes Absolute Auto 0.4 X10*3/uL (0.1-1.2); Monocytes Percent Auto 4.8 % (2-11); Neutrophils Absolute Auto 4.5 x10*3/uL (2.0-8.3); Neutrophils Percent Auto 52.7 % (45-73); Platelet Count 274 X10*3/uL (160-400); Red Blood Count 5.72 X10*6/uL (4.60-5.80); Red Cell Distribution Width 12.5 % (11.0-16.0); White Blood Count 8.5 X10*3/uL (4.8-10.8)
[2024-04-24] MEDS: Magnesium Sulfate/H2O 2 GM/50 ML PIGGYBACK IV (00:17)
[2024-04-24] MEDS: methylPREDNISolone Sod Succ 125 MG/2 ML VIAL IVPUSH (00:17)
--- NOTE | 2024-04-24 00:21 | PC.NURSE ---
Iv placed, medicated per mar, breathing treatment.
[2024-04-24 00:26] VITALS: O2SAT 95
[2024-04-24 00:30] LABS: Anion Gap 15 (12-20); Blood Urea Nitrogen 12 mg/dL (9-16); Carbon Dioxide 24 mmol/L (22-29); Chloride 105 mmol/L (96-108); Creatinine Clr Calc Pharmacy 155.9; Estimated Glomerular Filt Rate > 60; Glucose Random 103 mg/dL (60-115); Potassium 4.6 mmol/L (3.3-5.1); Sodium 139 mmol/L (135-145)
[2024-04-24] MEDS: Albuterol Sulfate 5 MG, Albuterol/Iprat 2.5/0.5MG 3 ML 3 ML INHALE (01:02)
[2024-04-24 01:03] VITALS: PULSE 109; RESP 21; O2SAT 96
[2024-04-24 03:05] VITALS: BP 117/77; PULSE 106; RESP 14; TEMP 37.1; O2SAT 95
--- NOTE | 2024-04-24 03:55 | MHC.EDTECH ---
Patient O2 at the beginning of walk was 95% while walking desat to 93%, when getting closer to the room O2 desat to 91%.
[2024-04-24 04:12] VITALS: BP 117/77; PULSE 106; RESP 16; TEMP 37.1; O2SAT 95
== END 2024-04-24 04:15 | disposition home or self-care (01) ==
PROVIDERS: Emergency Provider Emergency Medicine
DX: J45.901 Unspecified asthma with (acute) exacerbation (principal); R06.02 Shortness of breath; Z03.818 Encounter for observation for suspected exposure to other biological agents ruled out; Z79.899 Other long term (current) drug therapy
CPT/HCPCS: 0241U; 36415; 71045; 80048; 85025; 94640; 96365; 96366; 96375; 99284; 99285; J2919; J3475